=== PATIENT | male | born 1985 | race African-American/Black ===

== ENCOUNTER 2017-05-26 20:26 | Emergency (ER) | payer OTHER ==
[~2017-05-26] VITALS: Ht 182.9 cm; Wt 70.3 kg
[2017-05-26 20:33] VITALS: TEMP 36.8; Ht 182.9 cm; Wt 70.3 kg
[2017-05-26] MEDS ORDERED: IBUPROFEN 600 MG TAB PO STA (20:51)
[2017-05-26] MEDS ORDERED: HYDROCODONE/ACETAMIN 5/325MG TAB PO STA (20:51)
[2017-05-26] MEDS ORDERED: AMPH15CA7 PO (21:09)
[2017-05-26] MEDS ORDERED: NORCO 5/325MG HOME PACK PO STA (21:48)
--- NOTE | 2017-05-26 21:53 | DIAGNOSTIC IMAGING REPORT ---
L FOOT MIN 3 VIEWS ROUTINE CLINICAL HISTORY: 31 years-old Male presenting with L foot pain s/p kicking door. TECHNIQUE: Frontal, oblique, and lateral views of the left foot were obtained. COMPARISON: None. FINDINGS: No acute fracture or acute malalignment. Mild loss of the longitudinal arch. No radiographic soft tissue abnormality. No radiopaque foreign body. IMPRESSION: 1. No acute osseous injury. 2. Mild pes planus deformity suggested. Electronically signed by: Paul Palafox M.D. 05/26/2017 9:52 PM Dictated Date/Time: 05/26/2017 9:51 PM
--- NOTE | 2017-05-26 21:59 | EMERGENCY ROOM VISIT NOTE ---
History First contact with patient: 20:46 Chief Complaint: FOOT PAIN Stated Complaint: SWOLLEN FOOT History of Present Illness The patient is a 31 year old male who presents to the Emergency Room with complaints of "swollen foot". The patient states that earlier today around 2 AM he kicked a door with a shoe on his foot. He notes that since that time he has had pain in the distal portion of his left foot just behind the fourth and fifth digits. He notes when he puts weight on the area it is quite painful and now it is swollen and reddened. He did take ibuprofen earlier this morning around 7 AM with minimal relief. Review of Systems A complete 6-point Review of Systems was discussed with the patient, with pertinent positives and negatives listed in the History of Present Illness. All remaining Review of Systems questions can be considered negative unless otherwise specified. Past Medical/Surgical History Previous fracture of the left foot. Family History Noncontributory. Social History Smoking Status: Current Every Day Smoker Patient is employed and lives locally. Current/Historical Medications Scheduled PRN Hydrocodone/Acetaminophen 5MG/325MG ([place] 5MG/325MG), 1-2 TABLET PO Q6 PRN for Pain Physical Exam Vital Signs Date Time Temp Pulse Resp B/P (MAP) Pulse Ox O2 Delivery O2 Flow Rate FiO2 05/26/17 22:15 88 18 128/76 98 05/26/17 20:33 36.8 99 18 117/70 100 Room Air Physical Exam VITAL SIGNS - Vital signs and nursing notes were reviewed. Stable. GENERAL -31-year-old male appearing his stated age who is in no acute distress. Communicates well with provider and answers questions appropriately. SKIN - Without rashes. No petechial rashes. Overlying the distal aspects on the top of the patient's left foot just proximal to the third fourth and fifth digits there is erythema and slight edema. This essentially located over the distal left fourth metatarsal. EXTREMITIES - no tenderness of the patient's proximal or distal tibia or fibula. There is tenderness pinpoint at the distal aspect of the left fourth metatarsal joint. Tenderness extending from this region but no other areas noted. Good capillary refill. He is neurovascularly intact in this region. Medical Decision & Procedures ER Provider Diagnostic Interpretation: L FOOT MIN 3 VIEWS ROUTINE CLINICAL HISTORY: 31 years-old Male presenting with L foot pain s/p kicking door. TECHNIQUE: Frontal, oblique, and lateral views of the left foot were obtained. COMPARISON: None. FINDINGS: No acute fracture or acute malalignment. Mild loss of the longitudinal arch. No radiographic soft tissue abnormality. No radiopaque foreign body. IMPRESSION: 1. No acute osseous injury. 2. Mild pes planus deformity suggested. Electronically signed by: Paul Palafox M.D. 05/26/2017 9:52 PM Dictated Date/Time: 05/26/2017 9:51 PM Medications Administered Medications (Trade) Dose Ordered Sig/Sanju Route Start Time Stop Time Status Last Admin Dose Admin Acetaminophen/ Hydrocodone Bitart ([place] 5/325 Tab) 1 tab NOW STAT PO 05/26/17 20:51 05/26/17 20:52 DC 05/26/17 21:13 1 TAB Ibuprofen (Motrin Tab) 600 mg NOW STAT PO 05/26/17 20:51 05/26/17 20:52 DC 05/26/17 21:13 600 MG Medical Decision Patient was seen and evaluated as above. He presents to us today with left foot pain. X-ray was obtained. Results read by the radiologist were found to be negative however I do believe there is a small nondisplaced metatarsal fracture at the distal left fourth metatarsal joint. This is directly over the patient's noted area of pain. I initially wanted to provide a postop shoe and crutches however the patient notes he works 7 days a week and is constantly on his feet. He is not able to use crutches at work therefore I will favor a low top fracture boot. He is to follow with orthopedics regarding his injury today. He was given [place] for his pain and a short prescription. No red flag identified in the [employer] drug monitoring system. While here for his pain he was given ibuprofen and [place]. He was certainly educated upon the cautions abusing [place] as well as not to combine this with Tylenol or other acetaminophen derivatives. He was educated upon management, educated upon worrisome symptoms which to return, had questions and provided discharge, and was discharged home in good condition. In the evaluation and treatment of this patient, the following differential diagnoses were considered: Lisfranc Fracture, Talus Fracture, Tarsal Fracture, Foot Sprain. Impression Primary Impression: Foot pain Departure Information Dispostion Home / Self-Care Condition GOOD Prescriptions Hydrocodone/Acetaminophen 5MG/325MG ([place] 5MG/325MG) Tab 1-2 TABLET PO Q6 Y for Pain, #15 TAB For Initial Treatment Prov: Abebe Nance PA-C 05/26/17 Referrals No Doctor, Assigned (PCP) Paul Rinaldi M.D. Patient Instructions My [facility] Additional Instructions You have been treated in the Emergency Department for a left foot injury. You have received pain medicine in the emergency department which impairs your ability to operate a vehicle. It is illegal for you to drive after receiving these medicines. You have been prescribed [place] to be used for pain control. This is a narcotic medication. You cannot drive or consume alcohol while on this medicine. This medicine should only be used for pain that cannot be controlled with over-the- counter pain medicines. For pain control, you can use the following [id number]-hmxcciv medicines (if >12 yo): - Regular strength (325mg/tab) Tylenol (acetaminophen) 2 tabs every 4-6 hours as needed. Do not exceed 12 tablets in a 24 hour period. Avoid taking more than 3 grams (3000 mg) of Tylenol per day. This includes any other sources of acetaminophen you may take on a regular basis. NO NORCO WITH THIS - Regular strength (200 mg/tab) Advil (ibuprofen) 1-2 tabs every 4-6 hours as needed. Do not exceed a dose of 3200 mg per day. If this is a recent injury (<24 hrs), ice can be applied to the area of pain for the first 3 days to help decrease pain and inflammation. You have been provided the number for an Orthopaedic Surgeon. You should call this number as soon as possible to establish a follow-up visit from today's Emergency Department visit. Keep the foot brace/splint in place until cleared by Orthopedics. Use the crutches you have been provided to keep ALL weight off of the ankle until weight bearing is tolerable. Return to the Emergency Department if your current symptoms worsen despite treatment course outlined above, or if you develop any of the following symptoms : intractable pain despite aforementioned treatment course or new onset of numbness or tingling of the foot.
[2017-05-26] MEDS ORDERED: HYDR-5688 PO (22:05)
[2017-05-26 22:15] VITALS: BP 128/76; PULSE 88; O2SAT 98
== END 2017-05-26 22:10 | disposition home or self-care (01) ==
LOC: C.EDB 20:28 → C.EDD 22:10
DX: M79.672 Pain in left foot (principal); W22.8XXA Striking against or struck by other objects, initial encounter; Y92.9 Unspecified place or not applicable; F17.210 Nicotine dependence, cigarettes, uncomplicated